=== PATIENT | female | born 1950 | race Caucasian/White ===

== ENCOUNTER → 2018-05-13 11:59 | Outpatient (CLI) | payer MEDICARE, OTHER, SELFPAY ==
--- NOTE | 2018-05-13 | DI.MG.S_ITS ---
BILATERAL DIGITAL SCREENING MAMMOGRAM 3D/2D WITH CAD: 05/13/2018 CLINICAL: Routine screening. Family history of breast cancer. Comparison is made to exams dated: 02/13/2017 mammogram, 01/07/2016 mammogram, 01/07/2016 mammogram, and 12/31/2014 mammogram - [facility]. The tissue of both breasts is extremely dense, which lowers the sensitivity of mammography. Current study was also evaluated with a Computer Aided Detection (CAD) system. No significant masses, calcifications, or other findings are seen in either breast. There has been no significant interval change. IMPRESSION: NEGATIVE There is no mammographic evidence of malignancy. A 1 year screening mammogram is recommended. This exam was interpreted at Station ID: [id number]. NOTE: For mammograms, a report in lay terms will be sent to the patient. Approximately 15% of breast malignancies will not be visualized mammographically. In the management of a palpable breast mass, a negative mammogram must not discourage biopsy of a clinically suspicious lesion. Electronically Signed By: Addis hood/leonides:05/14/2018 16:33:02 letter sent: Normal Exam ACR BI-RADS Category 1: Negative 3341F
== END ==
PROVIDERS: Family Provider Family Medicine; PCP Family Medicine; Visit Provider Family Medicine
DX: Z12.31 Encounter for screening mammogram for malignant neoplasm of breast (principal); Z80.3 Family history of malignant neoplasm of breast
CPT/HCPCS: 77063; 77067

== ENCOUNTER → 2018-05-29 15:00 | Outpatient (CLI) | payer MEDICARE, OTHER, SELFPAY | PROVIDERS: Family Provider Family Medicine; PCP Family Medicine; Visit Provider Family Medicine | DX: M81.0 Age-related osteoporosis without current pathological fracture (principal); Z78.0 Asymptomatic menopausal state | CPT/HCPCS: 77080 ==

== ENCOUNTER → 2019-12-24 10:38 | Outpatient (CLI) | payer MEDICARE, OTHER, SELFPAY ==
--- NOTE | 2019-12-24 | DI.MG.S_ITS ---
BILATERAL DIGITAL SCREENING MAMMOGRAM 3D/2D WITH CAD: 12/24/2019 CLINICAL: Routine screening. Family history of breast cancer. Comparison is made to exams dated: 05/13/2018 mammogram, 02/13/2017 mammogram, and 01/07/2016 mammogram - [facility]. The tissue of both breasts is extremely dense, which lowers the sensitivity of mammography. Current study was also evaluated with a Computer Aided Detection (CAD) system. No significant masses, calcifications, or other findings are seen in either breast. IMPRESSION: NEGATIVE There is no mammographic evidence of malignancy. A 1 year screening mammogram is recommended. This exam was interpreted at Station ID: [id number]. NOTE: For mammograms, a report in lay terms will be sent to the patient. Approximately 15% of breast malignancies will not be visualized mammographically. In the management of a palpable breast mass, a negative mammogram must not discourage biopsy of a clinically suspicious lesion. Electronically Signed By: Addis hood/leonides:12/24/2019 13:50:30 letter sent: Normal Exam ACR BI-RADS Category 1: Negative 3341F
== END ==
PROVIDERS: Family Provider Family Medicine; PCP Student in an Organized Health Care Education/Training Program; Referring Provider Student in an Organized Health Care Education/Training Program; Visit Provider Student in an Organized Health Care Education/Training Program
DX: Z12.31 Encounter for screening mammogram for malignant neoplasm of breast (principal); Z80.3 Family history of malignant neoplasm of breast
CPT/HCPCS: 77063; 77067

== ENCOUNTER → 2020-08-30 14:21 | Outpatient (CLI) | payer MEDICARE, OTHER, SELFPAY ==
--- NOTE | 2020-08-30 | DI.RAD.S_ITS ---
PROCEDURE: XR DEXA AXIAL SKELETON INDICATIONS: age related osteoporosis COMPARISON: [facility], CR, XR DEXA AXIAL SKELETON, 05/29/2018, 15:33. FINDINGS: This blank DEXA report has been sent in error by the PACS system. The correct and complete report will be forthcoming in 1-2 days. Thank you for your patience and understanding. Dictated by: Millie Cuevas MD, PhD on 08/30/2020 at 17:21 Approved by: Millie Cuevas MD, PhD on 08/30/2020 at 17:21
--- NOTE | 2020-08-30 | DI.RAD.S_ITS ---
PROCEDURE: XR CHEST 2V INDICATIONS: unspecified chest pain TECHNIQUE: 2 views of the chest were acquired. COMPARISON: None. FINDINGS: Surgical changes and devices: None. Lungs and pleura: Lungs are clear. No pleural effusions or pneumothorax. Mediastinum: Mediastinal contours are normal. Heart size is normal. Bones and chest wall: No suspicious bony abnormalities. Soft tissues appear unremarkable. IMPRESSION: Normal for age, source of current chest pain symptoms is not seen. Dictated by: French Sepulveda M.D. on 08/30/2020 at 15:26 Approved by: French Sepulveda M.D. on 08/30/2020 at 15:26
== END ==
PROVIDERS: PCP Student in an Organized Health Care Education/Training Program; Referring Provider Student in an Organized Health Care Education/Training Program; Visit Provider Student in an Organized Health Care Education/Training Program
DX: R07.9 Chest pain, unspecified (principal); M81.0 Age-related osteoporosis without current pathological fracture; M85.88 Other specified disorders of bone density and structure, other site
CPT/HCPCS: 71046; 77080

== ENCOUNTER → 2020-09-25 09:34 | Outpatient (CLI) | payer MEDICARE, OTHER, SELFPAY ==
[2020-09-25 11:26] LABS: COVID19 -Nasal RAPID Negative (Negative)
== END ==
PROVIDERS: PCP Student in an Organized Health Care Education/Training Program; Referring Provider Physician Assistant; Visit Provider Physician Assistant
DX: Z01.812 Encounter for preprocedural laboratory examination (principal); Z20.822 Contact with and (suspected) exposure to COVID-19
CPT/HCPCS: 87635; C9803

== ENCOUNTER → 2020-09-27 10:07 | Outpatient (CLI) | payer MEDICARE, OTHER, SELFPAY ==
--- NOTE | 2020-09-27 10:09 | DI.NM.S_ITS ---
PROCEDURE: NM SULEMA PERF SPECT REST & STR Rest and exercise myocardial perfusion SPECT with gated imaging and ejection fraction RADIOPHARMACEUTICAL: 9.8 mCi Tc-99m sestamibi IV at rest and 25.7 mCi Tc-99m sestamibi IV at peak exercise. A one day-protocol was performed. INDICATIONS: Chest pain, unspecified TECHNIQUE: Radiopharmaceutical was injected at peak stress test, and also at rest. SPECT images were obtained. SPECT myocardial perfusion images were displayed in short axis, horizontal long axis, and vertical long axis views. Gated images were reviewed using Showcase software. COMPARISON: None. CARDIAC STRESS: A standard Franc treadmill exercise tolerance test was performed by the patient under the supervision of an attending staff. The patient exercised for 6 minutes and 40 seconds; functional aerobic impairment (GEOVANNI) is -27%. Hemodynamic data: There is normal blood pressure and heart rate response to exercise stress. Patient achieved 97% of maximum predicted heart rate at peak exercise. Symptoms: Patient denied chest pain during exercise. EKG: No diagnostic EKG changes of ischemia; no ectopy. FINDINGS: Raw data: There is good myocardial labeling by radiotracer. No significant motion artifacts. Aziw-zb-qrytk ratio is 0.33 (normal is less than 0.38 for sestamibi tracer, and less than 0.50 for thallium tracer). Left ventricle function: Gated images demonstrate normal left ventricle wall thickening. No segmental wall motion abnormality. No transient ischemic dilation; TID is 0.85 (normal less than 1.3). The left ventricle resting end-diastolic volume is 81 mL. Left ventricle stress ejection fraction is 79%; normal values are above 45%. Myocardial perfusion: There is normal distribution of activity in the left and right ventricular myocardium. No fixed or reversible perfusion defects. IMPRESSION: Low risk, normal treadmill nuclear stress test 1) No perfusion evidence of ischemia or infarction. 2) Normal left ventricular size, wall motion, and systolic function (EF post stress 79%). 3) No ECG evidence of ischemia. 4) No angina during the study. 5) Good exercise tolerance (10.1 METs, GEOVANNI -27%). Target heart rate achieved. Appropriate BP response to exercise. 6) No prior nuclear stress test available for comparison. Dictated by: Priscilla Neville MD on 09/27/2020 at 16:56 Approved by: Priscilla Neville MD on 09/27/2020 at 16:59
--- NOTE | 2020-09-27 15:15 | PM.TREADMILL ---
Cardiac Stress Test Report Referral & Results Date Patient Seen: 09/27/20 Time Patient Seen: 15:15 Requesting provider: Charlotte Escamilla Indication: chest pain Rest ECG: sinus rhythm Procedure Note: Standard Franc protocol, 7:45, 7.7 METS Good exercise capacity, GEOVANNI -27% Normal hemodynamic response to exercise No chest pain or anginal symptoms No significant ST changes with nonspecific ST changes at peak exercise No ectopy Impression: Normal exercise stress test Please note: Actual ECG tracings can be found in the PACS system.
== END ==
PROVIDERS: PCP Student in an Organized Health Care Education/Training Program; Referring Provider Student in an Organized Health Care Education/Training Program; Visit Provider Student in an Organized Health Care Education/Training Program
DX: R07.9 Chest pain, unspecified (principal)
CPT/HCPCS: 78452; 93017; A9502

== ENCOUNTER → 2021-03-11 13:31 | Outpatient (CLI) | payer MEDICARE, OTHER, SELFPAY ==
--- NOTE | 2021-03-11 13:34 | DI.MG.S_ITS ---
BILATERAL DIGITAL SCREENING MAMMOGRAM 3D/2D WITH CAD: 03/11/2021 CLINICAL: Routine screening. Family history of breast cancer. Comparison is made to exams dated: 12/24/2019 mammogram, 05/13/2018 mammogram, and 02/13/2017 mammogram - [facility]. The tissue of both breasts is extremely dense, which lowers the sensitivity of mammography. Current study was also evaluated with a Computer Aided Detection (CAD) system. No significant masses, calcifications, or other findings are seen in either breast. There has been no significant interval change. IMPRESSION: NEGATIVE There is no mammographic evidence of malignancy. A 1 year screening mammogram is recommended. This exam was interpreted at Station ID: [id number]. NOTE: For mammograms, a report in lay terms will be sent to the patient. Approximately 15% of breast malignancies will not be visualized mammographically. In the management of a palpable breast mass, a negative mammogram must not discourage biopsy of a clinically suspicious lesion. Electronically Signed By: Shashank Alfonso M.D., jr/lenoides:03/11/2021 14:05:20 letter sent: Normal Exam ACR BI-RADS Category 1: Negative 3341F
== END ==
PROVIDERS: PCP Student in an Organized Health Care Education/Training Program; Referring Provider Student in an Organized Health Care Education/Training Program; Visit Provider Student in an Organized Health Care Education/Training Program
DX: Z12.31 Encounter for screening mammogram for malignant neoplasm of breast (principal); Z80.3 Family history of malignant neoplasm of breast
CPT/HCPCS: 77063; 77067

== ENCOUNTER → 2022-04-25 08:06 | Outpatient (CLI) | payer MEDICARE, OTHER, SELFPAY ==
--- NOTE | 2022-04-25 08:07 | DI.MG.S_ITS ---
BILATERAL DIGITAL SCREENING MAMMOGRAM 3D/2D WITH CAD: 04/25/2022 CLINICAL: Routine screening. Family history of breast cancer. Comparison is made to exams dated: 03/11/2021 mammogram, 12/24/2019 mammogram, and 05/13/2018 mammogram - [facility]. Both breasts are heterogeneously dense, which may obscure small masses (category c / 51-75% glandular tissue). Current study was also evaluated with a Computer Aided Detection (CAD) system. No significant masses, calcifications, or other findings are seen in either breast. There has been no significant interval change. IMPRESSION: NEGATIVE There is no mammographic evidence of malignancy. A 1 year screening mammogram is recommended. Based on the Tyrer Cuzick model (a risk assessment model) the patient's lifetime risk is 10.1% and her 10 year risk is 6.0%. According to the ACR, ACS, and NCCN guidelines, an annual breast MRI exam along with mammogram is recommended if the patient's lifetime risk is 20% or greater. This exam was interpreted at Station ID: [id number]. NOTE: For mammograms, a report in lay terms will be sent to the patient. Approximately 15% of breast malignancies will not be visualized mammographically. In the management of a palpable breast mass, a negative mammogram must not discourage biopsy of a clinically suspicious lesion. Electronically Signed By: Jonny oscar/leonides:04/25/2022 08:40:49 letter sent: Normal Exam ACR BI-RADS Category 1: Negative 3341F
== END ==
PROVIDERS: PCP Registered Nurse; Referring Provider Registered Nurse; Visit Provider Registered Nurse
DX: Z12.31 Encounter for screening mammogram for malignant neoplasm of breast (principal); Z80.3 Family history of malignant neoplasm of breast
CPT/HCPCS: 77063; 77067

== ENCOUNTER → 2022-06-23 11:26 | Outpatient (CLI) | payer MEDICARE, OTHER, SELFPAY | PROVIDERS: PCP Registered Nurse; Referring Provider Orthopaedic Surgery; Visit Provider Orthopaedic Surgery | DX: Z01.818 Encounter for other preprocedural examination (principal); Z01.812 Encounter for preprocedural laboratory examination; R73.9 Hyperglycemia, unspecified; N39.0 Urinary tract infection, site not specified | CPT/HCPCS: 93005 ==

== ENCOUNTER → 2022-09-05 | Outpatient (CLI) | payer MEDICARE, OTHER, SELFPAY ==
--- NOTE | 2022-09-05 | DI.RAD.S_ITS ---
Bone Density Report Name: JERSON GRAMAJO Age: 71 Sex: Female Ethnicity: White Date of : 1950 Indication: postmenopausal osteoporosis; Referring Provider: DIONISIO REINOSO Study: Bone densitometry was performed. Exam Date: September 05, 2022 Accession number: [id number] Bone Density: Region BMD T-score Z-score Classification AP Spine(L1-L4) 0.844 -1.8 0.2 Osteopenia Femoral Neck (Left) 0.590 -2.3 -0.5 Osteopenia Total Hip (Left) 0.611 -2.7 -1.2 Osteoporosis Femoral Neck (Right) 0.549 -2.7 -0.9 Osteoporosis Total Hip (Right) 0.640 -2.5 -1.0 Osteoporosis Total Hip Mean 0.625 -2.6 -1.1 Osteoporosis World Health Organization criteria for BMD impression classify patients as: Normal (T-score at or above -1.0), Osteopenia (T-score between -1.0 and -2.5), or Osteoporosis (T-score at or below -2.5). 10-year Fracture Risk: FRAX not reported because: Some T-score for Spine Total or Hip Total or Femoral Neck at or below -2.5 Previous Exams: -- Region Exam Age BMD T-score BMD Change BMD Change Date g/cm2 vs Baseline vs Previous -- AP Spine (L1-L4) 09/05/2022 71 0.844 -1.8 -0.013 (-1.5%)# -0.013 (-1.5%)# 08/30/2020 69 0.857 -1.7 Total Hip(Left) 09/05/2022 71 0.611 -2.7 0.002 (0.3%)# 0.002 (0.3%)# 08/30/2020 69 0.609 -2.7 Total Hip(Right) 09/05/2022 71 0.640 -2.5 0.024 (3.8%)# 0.024 (3.8%)# 08/30/2020 69 0.616 -2.7 -- *Denotes significance at 95% confidence level, LSC for AP Spine = 0.022 g/cm2, LSC for Total Hip = 0.027 g/cm2 # Denotes dissimilar scan types or analysis methods Impression: The patient has osteoporosis, based on the Left Total Hip T-score. No significant bone loss was observed. Discussion: INCREASED RISK OF FRACTURE. BONE DENSITY IS UNDESIRABLY LOW AT ONE OR MORE SKELETAL SITES, CONSISTENT WITH POSTMENOPAUSAL OSTEOPOROSIS. This patient's lowest T-score meets the World Health Organization's (WHO) criteria for osteoporosis at one or more sites (T-score -2.5 or below). In untreated patients, the risk of osteoporotic fracture increases approximately two-fold for each 1.0 SD decrease in T-score. Low bone density is not the only risk factor for fracture; also consider factors such as patient's age, frailty or poor health, risk of falling, risk of injury, previous osteoporotic fracture, family history of osteoporosis, cigarette smoking, low body weight, etc. Not everyone with low bone mineral density has osteoporosis; osteomalacia and other metabolic bone disorders should also be considered. Patients who have osteoporosis should be evaluated for specific diseases and conditions (secondary causes) that may cause or contribute to bone loss. The [place] [employer] Endocrinologists (AACE) and National Osteoporosis Foundation (NOF) recommend pharmacologic intervention for all postmenopausal women whose T-score is in this range. The patient should follow a healthful lifestyle (good nutrition with adequate calcium and vitamin D, and appropriate weight-bearing exercise). Follow-Up: Consider a repeat BMD and Vertebral Fracture Assessment (VFA) exam in 2 years or sooner if medically necessary, to reassess this patient's status. Reported by: SILVER ESPINOSA M.D. on 09/05/2022 10:17:00 AM.
== END ==
LOC: RAD 09:41
PROVIDERS: PCP Registered Nurse; Referring Provider Registered Nurse; Visit Provider Registered Nurse
DX: M81.0 Age-related osteoporosis without current pathological fracture (principal); Z78.0 Asymptomatic menopausal state
CPT/HCPCS: 77080

== ENCOUNTER 2022-09-21 09:03 | Day surgery (SDC) | payer MEDICARE, OTHER, SELFPAY ==
[2022-09-15 10:51] VITALS: BMI 23.6
[2022-09-21] VITALS (9 sets, daily range): BP systolic 80–126; BP diastolic 51–70; PULSE 61–100; RESP 12–18; TEMP 35.6–36.8; O2SAT 90–96; BMI 22.2
--- NOTE | 2022-09-21 06:00 | DI.RAD.S_ITS ---
PROCEDURE: XR HIP W PEL IF DONE LT 2V INDICATIONS: DEBBY TECHNIQUE: 4 intraoperative views of the hip were acquired. COMPARISON: [facility] [place], CR, XR PELVIS WITH LATERAL HIP LEFT, 04/28/2022, 9:05. FINDINGS: Intraoperative views demonstrate placement of left hip arthroplasty. IMPRESSION: Intraoperative imaging obtained during left hip arthroplasty. Dictated by: Pinky Bo M.D. on 09/21/2022 at 14:24 Transcribed by: MICHAEL on 09/21/2022 at 14:24 Approved by: Pinky Bo M.D. on 09/21/2022 at 16:39
[2022-09-21] MEDS: LACTATED RINGERS 1,000 ML 42 ML IV ×2 (09:39→13:05)
[2022-09-21] MEDS: ACETAMINOPHEN 325 MG TABLET 975 MG PO (09:40)
[2022-09-21] MEDS: PREGABALIN 75 MG CAPSULE PO (09:40)
[2022-09-21] MEDS: CELECOXIB 200 MG CAPSULE PO (09:40)
[2022-09-21] MEDS: VANCOMYCIN 1,000 MG/200 ML PIGGYBACK 200 MG IV (09:56)
[2022-09-21 10:15] LABS: COVID19 -Nasal RAPID Negative (Negative)
--- NOTE | 2022-09-21 10:39 | PM.PREOP ---
Pre-operative Note Interval Note History & Physical reviewed/Exam performed by Physician: Yes Changes to H&P: No
--- NOTE | 2022-09-21 10:39 | PM.OP.1 ---
Operative Date/Time/Diagnoses Date of procedure: 09/21/22 Time of procedure: 11:30 Pre-op diagnosis: left hip OA Post-op diagnosis: same Procedure & Clinicians Procedure: Left total hip arthroplasty anterior approach Same procedure as scheduled: Yes Indications: The patient has had progressively worsening left hip pain with radiographic changes consistent with arthritis. Non-operative management has failed and the patient has requested total hip replacement. The risks, benefits and alternatives to surgery were discussed with the patient prior to proceeding. Risks discussed included, but were not limited to, failure to relieve pain, leg length discrepancy, dislocation, stiffness, infection, nerve damage, deep venous thrombosis, pulmonary embolism, stroke, coma, heart attack, permanent paralysis and , as well as the potential need for eventual revision of the prosthetic. Surgeon: Mireya Bower Human Resources Operations Coordinator: Iliana Shepherd Anesthesia Type: General and Spinal Operative Notes Findings: Severe left hip osteoarthritis, soft bone adequate stability Closure Type: primary Specimen(s): none sent Prosthetic devices, grafts, tissues, transplants, or devices: Bower and nephew anthology standard offset size 9, size 50 R3 cup, neutral poly liner, 32 x +0 Oxinium head, one 6.5mm screw Estimated Blood Loss (mL): 250 Blood products transfused: none Procedure in detail: The patient was brought to the operating room. Patient was carefully positioned in the supine position. Time-out was performed and antibiotics were given. Anesthesia was induced. She was positioned in the on the table in order to allow hyperextension of the hip. The left lower extremity was prepped and draped in a standard sterile fashion. An anterior left hip incision was made 1 fingerbreadth lateral to the anterior superior iliac spine and extended distally towards the greater trochanter. Dissection was carried out through skin and subcutaneous tissues. Superficial hemostasis was achieved. The fascia over the tensor fascia luci was defined and incised with a knife. Two Allis clamps were used to grasp the fascia. Tensor fascia luci was retracted laterally. A gelpi retractor was placed. Dissection was carried out down along the neck. The circumflex vessels were carefully identified and cauterized with the Aqua Mantis. A PA was used during the procedure and was essential for retraction adequate positioning of the femur in order to avoid major intraoperative complication and to allow adequate visualization for hemostasis. There was good visualization of the femoral neck. A Cobra was placed superior to the neck and the gluteus fibers were carefully stripped from that superior aspect of the capsule. A 2nd retractor was placed along the inferior aspect of the neck. The rectus insertion along the capsule was partially released. A 3rd retractor that was then gently placed over the rim of the acetabulum under the rectus. Capsule was carefully incised and released from the intertrochanteric line circumferentially superior to the mid sagittal line and inferiorly to the mid sagittal line until the lesser trochanter was palpable. A tag stitch was placed both in the superior and inferior limb of the capsular insertion. Along the acetabulum capsule was also released up to the mid sagittal 12:00 position. A portion of the labrum was resected. A saw was used to perform an osteotomy at the level of the intertrochanteric line and the junction of the superior femoral neck leaving approximately 1 finger breath of residual inferior neck above the lesser trochanter. A 2nd cut was made along the femoral neck at the base of the head and a napkin ring of neck was removed. Corkscrew was placed in the femoral head and the head was removed without difficulty. Retractors were then repositioned around the acetabulum. Residual labrum was resected and additional osteophytes were removed. A reamer that was 4 mm below the templated size was placed by hand in the acetabulum and it was reamed to centralize the acetabulum. It was then reamed up to 2 under the templated size and fluoroscopy was brought in to confirm the position of the reaming and depth of reaming. I reamed 1 under the anticipated size. A trial cup was placed and noted that it was appropriately sized and fluoroscopy confirmed position and depth. The component was open and inserted without difficulty fluoroscopic imaging was used to confirm that the cup had been adequately seated and was well positioned. It was further stabilized with a single screw. Neutral poly liner was placed. The cup was tested and noted to be stable. Attention was then directed to the femur. The femur was gently hyperextended additional capsular release was performed as needed in order to allow adequate visualization of the proximal femur with elevation of the femur. Patient was placed in a hyperextended slightly adducted position with maximum external rotation. Box osteotome was used to check for any residual neck as well as sclerotic bone along the trochanter. Taylor pepper was placed in the femur. Additional broaching was performed. Canal finder was used to determine the alignment of the canal and position. Size 1 broach was placed. The canal was then appropriately broached up to the templated size as long as there was adequate stability of the broach and serial advancement of the broach without excessive impingement. Specific attention was directed at avoiding varus attempting to direct the distal aspect of the broach more anteriorly and avoiding excessive anteversion. Trial reduction showed acceptable range of motion, good stability, no posterior impingement, church of leg length and appropriate lateral shuck. I also hyperflexed the hip and checked that there was no impingement anteriorly and there was good stability with flexion, adduction and internal rotation. Marcaine and Exparel were injected. The stem was placed without difficulty. Repeat trial reduction and x-ray showed acceptable overall position, length, and no evidence of the femoral fracture. Final head was placed. Wound was meticulously irrigated with normal saline. The hip was reduced and additional Exparel and Marcaine were injected. The capsule was closed with interrupted nonabsorbable sutures. The fascia of the tensor was closed with interrupted and running Vicryl. No drain was placed. Any tensor fascia luci muscle that appeared to be contused or injured which was a minimal amount was carefully resected. Capsule around the tensor was injected with Exparel and Marcaine. The skin was closed with barbed stitches for the subcutaneous tissue and skin. We also used surgical glue. The wound was dressed sterilely. Brief Betadine soak was also used and was meticulously irrigated with normal saline. Patient was transferred to recovery room in satisfactory condition. Complications: none Post-operative Condition: stable Disposition: Acute Care Plan for aftercare: The patient will be maintained on a standard total hip replacement protocol with weight bearing as tolerated and anterior hip precautions. The patient will receive Aspirin and sequential compression devices for DVT prophylaxis. The patient will be discharged home when safe for the home environment.
[2022-09-21] MEDS: CLINDAMYCIN 900 MG/50 ML PIGGYBACK 50 MG IV ×2 (11:40→20:12)
[2022-09-21] MEDS: TRANEXAMIC ACID 1,000 MG VIAL 2000 MG INJ (12:00)
--- NOTE | 2022-09-21 12:17 | SUR.OPER ---
Supine on padded [place] table with bilateral legs secured in padded positioning boots and suspended in positioning spars, operative leg in traction per surgeon. Head on one pillow. Arm on non-operative side secured on padded armboard <90 degrees abduction. Arm on operative side padded and resting across chest then secured with tape over sheet. Padded perineal post in place per surgeon.
[2022-09-21] MEDS: BUPIVACAINE 0.25% (PF) 60 ML, EPINEPHrine 0.3 MG INJ (12:28)
[2022-09-21] MEDS: BUPIVACAINE LIPOSOME 266 MG/20 ML VIAL INJ (13:58)
--- NOTE | 2022-09-21 14:30 | DI.RAD.S_ITS ---
PROCEDURE: XR HIP W PEL IF DONE LT 2V INDICATIONS: POST OP ANTERIOR TOTAL HIP TECHNIQUE: AP pelvis and lateral view of the left hip acquired. COMPARISON: [facility], [place], XR HIP W PEL IF DONE LT 2V, 09/21/2022, 12:56. FINDINGS: Bones: Patient is status post left hip arthroplasty, with hardware components in expected positions. The hip joint appears congruent. The visualized bony structures appear intact. Soft tissues: Overlying postoperative changes are noted. No suspicious soft tissue densities. IMPRESSION: Postop changes from left total hip arthroplasty with anatomic left hip alignment. Dictated by: Smith Denton M.D. on 09/21/2022 at 14:48 Approved by: Smith Denton M.D. on 09/21/2022 at 14:48
[2022-09-21] MEDS: OXYCODONE/ACETAMINOPHEN 5/325 TABLET 1 TAB PO (14:44)
[2022-09-21] MEDS: IBUPROFEN 400 MG TABLET PO ×3 (15:43→23:47)
[2022-09-21] MEDS: LACTATED RINGERS 1,000 ML 100 ML IV (15:44)
[2022-09-21] MEDS: ACETAMINOPHEN 325 MG TABLET 650 MG PO ×2 (15:44→21:51)
--- NOTE | 2022-09-21 16:10 | PT.IIE ---
Addendum entered and electronically signed by Bambi Avila PT 09/21/22 16:47: Gait goal should include 2WW as LRAD for 100' gait Original Note: Current Diagnoses Unilateral primary osteoarthritis, left hip (09/21/22) Surgery Performed Operation Date: 09/21/22 10:45 Actual Procedures p Total Hip Arthroplasty/Anterior Approach(Left) - Mireya Bower MD Surgical History (Last Updated 09/15/22 @ 11:14 by Lucita Pierre RN) Hx of abdominoplasty Hx of arthroscopy of right knee Hx of thumb surgery Hx of unilateral salpingectomy Status post appendectomy Medical History (Last Updated 09/15/22 @ 11:19 by Lucita Pierre RN) Asthma Depression (2017) Easy bruisability Eczema Elevated cholesterol History of COVID-19 (11/2021) Hx of heartburn Osteoarthritis Osteoporosis Physical Therapy Inpatient Evaluation/Re-Eval M1 PT/OT-IP Prior Functional Status Start: 09/21/22 15:58 Freq: NEEDED Status: Active Protocol: Document 09/21/22 15:59 MB (Rec: 09/21/22 16:10 MB [id number]) Medical Review Prior Functional Status Medical History Reviewed Yes Communication WNLs Mobility and Gait I Activities of Daily Living and IADL's I Social History Household Members spouse Living Arrangements House Number of Floors (Floors) One Floor Number of Stairs To Enter/Railing? 2, no railing Home Environment High Toilet Home Equipment Front Wheel Walker,Tub Transfer Bench Employment Status Retired M2 PT-IP Current Condition Start: 09/21/22 15:58 Freq: NEEDED Status: Active Protocol: Document 09/21/22 15:59 MB (Rec: 09/21/22 16:10 MB [id number]) Physical Therapy Current Condition Current Condition Evaluation Date 09/21/22 Treatment Diagnosis L hip OA s/p DEBBY Onset Date Adm today M3 PT-IP Subjective Start: 09/21/22 15:58 Freq: NEEDED Status: Active Protocol: Document 09/21/22 15:59 MB (Rec: 09/21/22 16:10 MB [id number]) Subjective Physical Therapy Visit Type Type Initial Evaluation Visit Start Time 15:30 Visit Stop Time 15:55 Total Visit Minutes 25 Number of FEEDER ASSOCIATE Visits 0 Physical Therapy Visit Comments Patient Comments Pt's goal is to go home with . Patient Goals See above Therapy Pain Assessment Pain When Pain Assessed At Rest Pain Present Pain Present Pain Reported Location L hip Intensity 6 Scale Used Numeric (0 - 10) Description Acute Pain Management Techniques Apply Cold,Timing of Activity with Medications M4 PT-IP Mobility and Gait Start: 09/21/22 15:58 Freq: NEEDED Status: Active Protocol: Document 09/21/22 15:59 MB (Rec: 09/21/22 16:10 MB [id number]) PT-Bed Mobility Assessment Rolling Type of Rolling Roll to Left Level of Assist Minimal Assistance,1 Person Assistance Supine to Sit Supine to Sit Minimal Assistance,1 Person Assistance,Head of Bed Elevated,Bedrails Scooting Scooting to Edge of Bed Minimal Assistance PT-Transfer Assessment Sit to and From Stand Sit to and from Stand Minimal Assistance,1 Person Assistance,Use of Upper Extremities Equipment Transfer Assistive Device Front Wheeled Walker Orthotic/Prosthetic Devices or Brace: No Transfers Transfer Destination Chair Transfer Technique Stepping to chair with RW Transfer Ability Level of Assist Minimal Assistance,1 Person Assistance Comments Mobility Comments Step-to herman initially to get started, walker and then LLE followed by right LE for forward and reverse for retropulsion Gait Assessment Gait Gait Assistance Required: Minimum Assistance,1 Person Assist Distance (Feet) 5 Able to Maintain Weight Bearing Status Yes During Gait Assistive Devices Assistive Device Front Wheeled Walker Orthotic/Prosthetic Devices or Brace: No Gait Deviations General Gait Pattern Antalgic,Decreased Stride Length,Decreased Feet Clearance,Wide Based Gait Factors Limiting Gait Function Factors Limiting Gait Function Pain,Poor Balance Comments Gait Comments See above for gait comments PT-Balance Assessment Sitting Balance and Reactions Static Sitting Balance Ability Fair Dynamic Sitting Balance Ability Fair Standing Balance and Reactions Static Standing Balance Ability Fair Dynamic Standing Balance Ability Fair Comments Other Balance Tests/Deviations/Treatment UE support for static and : dynamic sitting and scooting and RW support for static and dynamic standing with PT Min A M5 PT-IP Objective Assessments Start: 09/21/22 15:58 Freq: NEEDED Status: Active Protocol: Document 09/21/22 15:59 MB (Rec: 09/21/22 16:10 MB [id number]) Orientation Orientation/Cognition Level of Alertness Alert Orientation Name,Age,Birthday,Month,Date, Year,Day of Week,Place, Situation Language Function Ability No Deficits Noted Safety Awareness Understands Safety Issues Memory Description No Deficits Noted Gross Range of Motion Upper Extremity ROM Assessment Within Functional Limits Lower Extremity ROM Assessment Left Impaired Impairments L hip Strength Upper Extremity Strength Assessment Within Functional Limits Lower Extremity Strength Assessment Left Impaired Hip Does not tolerate Knee As above Ankle As above Sensation Assessment Sensation Gross Sensation WNL M6 PT-IP Treatment Start: 09/21/22 15:58 Freq: NEEDED Status: Active Protocol: Document 09/21/22 15:59 MB (Rec: 09/21/22 16:10 MB [id number]) Physical Therapy Treatment Exercises Exercises Ankle Pumps,Gluteal Sets,Quad Sets,Heel Slides Education Education Provided Precautions,Weight Bearing Status,Post-Op Packet,Safety M7 PT-IP Assessment and Plan Start: 09/21/22 15:58 Freq: NEEDED Status: Active Protocol: Document 09/21/22 15:59 MB (Rec: 09/21/22 16:10 MB [id number]) PT Summary Assessment and Plan Potential Rehabilitation Potential Excellent Status of Condition at Evaluation Stable Summary Impairments Pain,Strength,Balance Progress Towards Goals Progressing Toward Goals Assessment Summary Pt is a pleasant 71 y/o female presenting alert s/p left DEBBY only a few hours earlier and she is moving legs in the bed. She c/o 6/10 pain and does tolerate bed mobility, transfer, short stepping and up to chair with RW. Pt requires min A and ed for mobility today, starting with step-to gait to get started post-op. Provided post -op packet and instructed pt in anterior hip precautions and exercises. Goals Bed Mobility Goal Independent Transfer Goal Independent Gait Goal Independent Gait Distance 100 Other Goals Ascend and descend 2 steps without rail with LRAD and min A. Days to Meet Goals 2 Frequency of Treatment Frequency Of Treatment Twice a Day Treatment Plan Physical Therapy Treatment Plan Bed Mobility Training,Transfer Training,Gait Training, Therapeutic Exercise,Balance Retraining,Post Op Education, Hot or Cold Pack Precautions Anterior Hip Precautions No Hip Extension,No Hip External Rotation Weight Bearing Status Weight Bearing Status Weight Bear as Tolerated Recommendations To Nursing Amount of Assist Needed 1 Person Assist Discharge Recommendations PT Discharge Recommendations Home with Assistance Transportation Needs at Discharge Private Vehicle
[2022-09-21] MEDS: OXYCODONE IR 5 MG TABLET PO (16:29)
--- NOTE | 2022-09-21 16:49 | PC.NURSE ---
Pt arrived to room 207 at 1500, VSS, afebrile. SBP soft, but improved to 100/50, on RA 95% 02 sats, afebrile. She denies any dizziness, n/v, or numbness/tingling to BLE's. Aquacel to L hip c/d/i. PT at bedside this afternoon, sitting patient up and ambulating to chair. She tolerates this well. PRN oxycodone 5mg given for 6/10 pain after PT. Pt tolerated well and reports pain well controlled. at bedside supportive. IVF LR running at 100 ml/hr. Educated on IS, and reaching 1999. Continuous monitoring.
[2022-09-21] MEDS: ASPIRIN EC 81 MG TABLET PO (20:12)
[2022-09-21] MEDS: DOCUSATE 100 MG CAPSULE PO (20:12)
[2022-09-22 00:25] VITALS: BP 117/64; PULSE 64; RESP 14; TEMP 36.5; O2SAT 98
[2022-09-22] MEDS: OXYCODONE IR 5 MG TABLET PO ×2 (01:43→06:41)
[2022-09-22] MEDS: ACETAMINOPHEN 325 MG TABLET 650 MG PO ×2 (03:19→09:12)
[2022-09-22] MEDS: IBUPROFEN 400 MG TABLET PO ×2 (03:19→06:41)
[2022-09-22] MEDS: CLINDAMYCIN 900 MG/50 ML PIGGYBACK 50 MG IV (03:22)
[2022-09-22 04:25] VITALS: BP 138/57; PULSE 78; RESP 16; TEMP 36.6; O2SAT 93
[2022-09-22] MEDS: SODIUM CHLORIDE 0.9% FLUSH 10 ML IV (04:42)
[2022-09-22 06:09] LABS: Hematocrit 29.1 % (36-46); Hemoglobin 10.1 g/dL (12.0-16.0)
--- NOTE | 2022-09-22 07:40 | PM.DS.1 ---
History of Present Illness History of Present Illness Date Patient Seen: 09/22/22 Time Patient Seen: 07:40 Chief complaint: OPB Narrative: Patient is complaining of mild left hip pain. She is working with physical therapy. She is been using some Nicorette minutes while in the hospital. Overall she is feeling well and would like to be discharged home today. Denies any numbness or tingling. Discharge Providers Provider Discharge Date: 09/22/22 Primary care physician: JHONY Vazquez Consults: 09/15/22 13:05 Consult to Anesthesiology Routine Comment: Consulting Provider: Anesthesiologist Reason for consultation: PAC courtesy re: Abnormal pre-op EKG 09/21/22 06:00 Consult to Anesthesiology Routine Comment: Consulting Provider: Anesthesiologist Reason for consultation: Regional block for post operative pain control 09/21/22 15:11 Consult to Discharge Planning Routine Comment: Consult to Physical Therapy Evaluate & Treat Comment: Physician Instructions: post op DEBBY protocol Discharge provider: Yue Cervantes PA-C Summary Hospital Course Discharge Diagnosis: Left hip osteoarthritis Hospital Course: Operative Date/Time/Diagnoses Date of procedure: 09/21/22 Time of procedure: 11:30 Procedure & Clinicians Procedure: Left total hip arthroplasty anterior approach Same procedure as scheduled: Yes Indications: The patient has had progressively worsening left hip pain with radiographic changes consistent with arthritis. Non-operative management has failed and the patient has requested total hip replacement. The risks, benefits and alternatives to surgery were discussed with the patient prior to proceeding. Risks discussed included, but were not limited to, failure to relieve pain, leg length discrepancy, dislocation, stiffness, infection, nerve damage, deep venous thrombosis, pulmonary embolism, stroke, coma, heart attack, permanent paralysis and , as well as the potential need for eventual revision of the prosthetic. Surgeon: Mireya Bower Recruitment Specialist: Iliana Shepherd Anesthesia Type: General and Spinal Operative Notes Findings: Severe left hip osteoarthritis, soft bone adequate stability Closure Type: primary Specimen(s): none sent Prosthetic devices, grafts, tissues, transplants, or devices: Bower and nephew anthology standard offset size 9, size 50 R3 cup, neutral poly liner, 32 x +0 Oxinium head, one 6.5mm screw Estimated Blood Loss (mL): 250 Blood products transfused: none Exam Vital Signs (past 8 hours): - 09/22/22 00:25 09/22/22 04:25 Temperature 97.7 F 97.8 F Pulse Rate 64 78 Respiratory Rate 14 16 Blood Pressure 117/64 138/57 L Pulse Oximetry 98 93 Oxygen Delivery Method Nasal Cannula Oxygen Flow Rate 0 Objective Labs 09/22/22 05:44 Labs: Laboratory Results - last 24 hr 09/21/22 09/22/22 09:24 05:44 Hgb 10.1 L Hct 29.1 L SARS-CoV-2 (PCR) Negative PFSH Medical History Asthma Depression (2018) Easy bruisability Eczema Elevated cholesterol History of COVID-19 (11/2021) Hx of heartburn Osteoarthritis Osteoporosis Surgical History Hx of abdominoplasty Hx of arthroscopy of right knee Hx of thumb surgery Hx of unilateral salpingectomy Status post appendectomy Family History Father Diverticulitis Prostate cancer High cholesterol Mother Mental health problem Grandmother Diverticulitis Social History household members: spouse Smoking Status: Former smoker alcohol intake: current Discharge Assessment & Plan Assessment and Plan Assessment: -stable status post left total hip arthroplasty, anterior approach Plan of Treatment: -mobilize with PT. Weightbearing as tolerated with front wheel walker or cane. Maintain anterior hip precautions x6 weeks -continue multimodal pain management -Aspirin 81 mg twice daily x6 weeks for DVT prophylaxis -continue with OTC nicotine gum/mints for nicotine dependence -DC home once cleared by PT Discharge Plan Discharge Plan Patient Disposition: Home Discharge orders & Medications Discharge Orders: Discharge (Order); Ordered 09/22/22 Ordered By: Yue Cervantes Prescriptions: New oxycodone 5 mg Tablet 5 mg PO Q3H PRN (Reason: Pain, Moderate (4-6)) Qty: 42 0RF acetaminophen 500 mg capsule 500 mg PO Q4-6H MDD Max 3000 mg per day PRN (Reason: fever or pain) Qty: 90 0RF ibuprofen 400 mg Tablet 400 mg PO Q4H MDD Max 2400 mg per day PRN (Reason: Pain/inflammation) Qty: 90 0RF aspirin 81 mg Tablet,Delayed Release (Dr/Ec) 81 mg PO BID 42 Days Qty: 84 0RF docusate sodium 100 mg Capsule 100 mg PO BID PRN (Reason: constipation) Qty: 20 0RF Continued fluoxetine 40 mg Capsule 40 mg PO QAM acyclovir 400 mg Tablet 400 mg PO DAILY minoxidil 2.5 mg Tablet 1.25 mg PO DAILY Discontinued acetaminophen 500 mg Tablet 500 mg PO BID PRN (Reason: Pain) ibuprofen 200 mg Tablet 400 mg PO DAILY PRN (Reason: Pain) naproxen sodium [Aleve] 220 mg Capsule 220 mg PO DAILY PRN (Reason: Pain) Follow up/Referrals: Ana Harrell ARNP [Primary Care Provider] - Mireya Bower MD [Physician] - As previously scheduled (10-14 days for postoperative visit and x-rays) Diet/Activity/Treatments Diet: Diet as Tolerated Other treatments: Medications: -Aspirin 81mg twice daily x6 weeks to prevent blood clots. -OTC Tylenol 500 mg 1 tablet every 4 hours as needed for pain/fever. Max 6 tablets per day. -Ibuprofen 400 mg 1 tablet every 4 hours as needed for pain/inflammation. Max 2,400 mg per day. -Oxycodone 5 mg take 1-2 tablets every 4 hours as needed for moderate-severe pain (narcotic pain medication). -As needed medications: -Ducolax and /or MiraLax as needed for constipation from narcotic pain medications. -Pepcid AC as needed for stomach upset (usually from aspirin or ibuprofen). Dressing/Wound care: -Keep Aquacell dressing in place until postoperative follow-up office visit. -Okay to shower. Keep wound out of direct water stream. No soaking or submerging until all the scabs fall off (approximately 6 weeks). -No lotions, ointments, or scar creams directly to the incision until the wound is healed (4-6 weeks), -Please call the office if dressing becomes wet, soiled, or saturated. Activities: -Maintain anterior hip precautions x6 weeks. -Walk frequently: approximately 5-10 minutes every hour. -Weight-bearing as tolerated. Use front wheeled walker, and progress to cane when safe. -Continue with home exercises as directed by your physical therapist. -Elevate ?toes above the nose if you have significant swelling in your lower leg. (A wedge pillow is easiest.) -Ice your incision as needed for pain/inflammation/swelling. Protect your skin with a folded pillowcase. Follow-up: -Follow-up with your surgeon or PA in the office in 10-14 days after surgery. -Follow-up with your surgeon 6 weeks postoperatively. Call the office if you have chest pain, shortness of breath, significant swelling that will not resolve with elevating, fever over 101?, significantly worsening pain, or are concerned you might need to go to the Emergency Room. [facility]: [phone] Skin/Wound/Dressing Care Report to your healthcare provider any signs of infection, such as:: chills, fever, night sweats, unusual drainage and unusual redness Visit Report/Discharge Packet Instructions: DI for Hip Replacement Stand Alone Forms: Patient Portal/API, Surgery Discharge Discharge Data Primary Care Provider: Ana Harrell Attending Provider: Mireya Bower
--- NOTE | 2022-09-22 08:35 | PT.IPTN ---
Current Diagnoses Unilateral primary osteoarthritis, left hip (09/21/22) Surgery Performed Operation Date: 09/21/22 10:45 Actual Procedures p Total Hip Arthroplasty/Anterior Approach(Left) - Mireya Bower MD Physical Therapy Treatment Note M2 PT-IP Current Condition Start: 09/21/22 15:58 Freq: NEEDED Status: Active Protocol: Document 09/21/22 15:59 MB (Rec: 09/21/22 16:10 MB [id number]) Physical Therapy Current Condition Current Condition Evaluation Date 09/21/22 Treatment Diagnosis L hip OA s/p DEBBY Onset Date Adm today M3 PT-IP Subjective Start: 09/21/22 15:58 Freq: NEEDED Status: Active Protocol: Document 09/22/22 08:59 TS (Rec: 09/22/22 09:13 TS [id number]) Subjective Physical Therapy Visit Type Type Treatment Note Visit Start Time 08:35 Visit Stop Time 08:54 Total Visit Minutes 19 Number of AIRPLANE FIRST OFFICER Visits 1 Physical Therapy Visit Comments Patient Comments Pt reports having increased pain with movement, reports pain is 2/10, ready to d/c home with . Therapy Pain Assessment Pain When Pain Assessed During Mobility Pain Present Pain Present Pain Reported Location L hip Intensity 2 Scale Used Numeric (0 - 10) Description Acute Pain Behaviors Wincing Pain Management Techniques Apply Cold,Timing of Activity with Medications M4 PT-IP Mobility and Gait Start: 09/21/22 15:58 Freq: NEEDED Status: Active Protocol: Document 09/22/22 08:59 TS (Rec: 09/22/22 09:13 TS [id number]) PT-Bed Mobility Assessment Supine to Sit Supine to Sit Standby Assistance,Head of Bed Elevated Sit to Supine Sit to Supine Standby Assistance,Head of Bed Elevated Scooting Scooting to Edge of Bed Standby Assistance PT-Transfer Assessment Sit to and From Stand Sit to and from Stand Standby Assistance,Use of Upper Extremities Equipment Transfer Assistive Device Front Wheeled Walker Orthotic/Prosthetic Devices or Brace: No Comments Mobility Comments Pt found resting in bed, agreeable to PT session. Supine to sit SBA with HOB elevated with BUE suppport. Sit to stand x1 SBA with BUE support on FWW, demonstrates good balance and posture in FWW. Pt ambulated to toilet ~8 ' SBA with step to gait. Pt performed sit to stand x1 from toilet no AD SBA. Ambulated in hallway ~ 250' with step to gait, cues for no external rotation during turns. She performed stairs x3 SBA with BUE handrail assist, provided cues for step sequencing. Pt was left back in bed with spouse in room, call light nearby, nursing notified. Gait Assessment Gait Gait Assistance Required: Standby Assistance Distance (Feet) 250 Able to Maintain Weight Bearing Status Yes During Gait Assistive Devices Assistive Device Front Wheeled Walker Orthotic/Prosthetic Devices or Brace: No Gait Deviations General Gait Pattern Antalgic,Decreased Stride Length,Decreased Feet Clearance,Wide Based Gait Factors Limiting Gait Function Factors Limiting Gait Function Pain,Poor Balance Comments Gait Comments See mobility comments. Stair Climbing Assessment Evaluation Level of Assist On Stairs Standby Assistance Devices Stair Climbing Assistive Devices Left Railing,Right Railing Technique/Endurance Stair Climbing Direction Ascend and Descend Stair Climbing Technique Step to Step Number of Steps Climbed 3 Comments Stair Climbing Comments See mobility comments. PT-Balance Assessment Sitting Balance and Reactions Static Sitting Balance Ability Good Dynamic Sitting Balance Ability Fair Standing Balance and Reactions Static Standing Balance Ability Good Dynamic Standing Balance Ability Fair M5 PT-IP Objective Assessments Start: 09/21/22 15:58 Freq: NEEDED Status: Active Protocol: Document 09/21/22 15:59 MB (Rec: 09/21/22 16:10 MB [id number]) Orientation Orientation/Cognition Level of Alertness Alert Orientation Name,Age,Birthday,Month,Date, Year,Day of Week,Place, Situation Language Function Ability No Deficits Noted Safety Awareness Understands Safety Issues Memory Description No Deficits Noted Gross Range of Motion Upper Extremity ROM Assessment Within Functional Limits Lower Extremity ROM Assessment Left Impaired Impairments L hip Strength Upper Extremity Strength Assessment Within Functional Limits Lower Extremity Strength Assessment Left Impaired Hip Does not tolerate Knee As above Ankle As above Sensation Assessment Sensation Gross Sensation WNL M6 PT-IP Treatment Start: 09/21/22 15:58 Freq: NEEDED Status: Active Protocol: Document 09/22/22 08:59 TS (Rec: 09/22/22 09:13 TS [id number]) Physical Therapy Treatment Education Education Provided Precautions,Weight Bearing Status,Post-Op Packet,Safety Other Treatments Other Treatment Performed Edcuated pt on anterior hip precautions, recalled 05/29. M7 PT-IP Assessment and Plan Start: 09/21/22 15:58 Freq: NEEDED Status: Active Protocol: Document 09/22/22 08:59 TS (Rec: 09/22/22 09:13 TS [id number]) PT Summary Assessment and Plan Potential Rehabilitation Potential Excellent Status of Condition at Evaluation Stable Summary Impairments Pain,Strength,Balance Progress Towards Goals Progressing Toward Goals Assessment Summary Pt progressed bed mobility, sit to stands, gait and stairs to SBA this session. She progressed her gait to 250', continues to demonstrate antalgic gait with ecreased sep length and height. She performed stairs x3 SBA with BUE handrail assist. PT recommends pt return home with assist from spouse. Pt has supportive spouse to assist with needs at home and she is doing very well with her mobility/pain. Goals Bed Mobility Goal Independent Transfer Goal Independent Gait Goal Independent Gait Distance 100 Other Goals Ascend and descend 2 steps without rail with LRAD and min A. Days to Meet Goals 2 Frequency of Treatment Frequency Of Treatment Twice a Day Treatment Plan Physical Therapy Treatment Plan Bed Mobility Training,Transfer Training,Gait Training, Therapeutic Exercise,Balance Retraining,Post Op Education, Hot or Cold Pack Precautions Anterior Hip Precautions No Hip Extension,No Hip External Rotation Weight Bearing Status Weight Bearing Status Weight Bear as Tolerated Recommendations To Nursing Amount of Assist Needed 1 Person Assist Discharge Recommendations PT Discharge Recommendations Home with Assistance Transportation Needs at Discharge Private Vehicle
[2022-09-22] MEDS: ASPIRIN EC 81 MG TABLET PO (09:11)
[2022-09-22] MEDS: FLUoxetine 20 MG CAPSULE 40 MG PO (09:13)
[2022-09-22] MEDS: ACYCLOVIR 400 MG TABLET PO (09:13)
[2022-09-22] MEDS: DOCUSATE 100 MG CAPSULE PO (09:13)
--- NOTE | 2022-09-22 09:29 | PC.NURSE ---
Patients dressing to her l.hip is cdi. She has worked with physical therapy and is here for training. She will be discharged this morning.
== END 2022-09-22 10:31 | disposition home or self-care (01) ==
LOC: OR 09:07 → AC 09:08
PROVIDERS: PCP Registered Nurse; Referring Provider Orthopaedic Surgery; Visit Provider Orthopaedic Surgery
PROC: (CPT 27130; principal; 2022-09-21 10:45)
DX: M16.12 Unilateral primary osteoarthritis, left hip (principal); Z20.822 Contact with and (suspected) exposure to COVID-19
CPT/HCPCS: 27130; 36415; 73502; 76000; 85014; 85018; 87635; 97116; 97161; C1776; C9803; C9290; J0171; J1100; J2250; J2405; J2704; J3010

== ENCOUNTER → 2023-06-19 15:35 | Outpatient (CLI) | payer MEDICARE, OTHER, SELFPAY ==
[2022-09-21 18:18] VITALS: BMI 22.2
--- NOTE | 2023-06-19 | DI.MG.S_ITS ---
BILATERAL DIGITAL SCREENING MAMMOGRAM 3D/2D WITH CAD: 06/19/2023 CLINICAL: Routine screening. Family history of breast cancer. Comparison is made to exams dated: 04/25/2022 mammogram, 03/11/2021 mammogram, 12/24/2019 mammogram, and 05/13/2018 mammogram - [facility]. Both breasts are heterogeneously dense, which may obscure small masses (category c / 51-75% glandular tissue). Current study was also evaluated with a Computer Aided Detection (CAD) system. No significant masses, calcifications, or other findings are seen in either breast. There has been no significant interval change. IMPRESSION: NEGATIVE There is no mammographic evidence of malignancy. A 1 year screening mammogram is recommended. Based on the Tyrer Cuzick model (a risk assessment model) the patient's lifetime risk is 9.5% and her 10 year risk is 6.1%. According to the ACR, ACS, and NCCN guidelines, an annual breast MRI exam along with mammogram is recommended if the patient's lifetime risk is 20% or greater. This exam was interpreted at Station ID: [id number]. NOTE: For mammograms, a report in lay terms will be sent to the patient. Approximately 15% of breast malignancies will not be visualized mammographically. In the management of a palpable breast mass, a negative mammogram must not discourage biopsy of a clinically suspicious lesion. Electronically Signed By: Silvio parra/leonides:06/20/2023 07:55:21 letter sent: Normal Exam ACR BI-RADS Category 1: Negative [id number]
== END ==
PROVIDERS: PCP Registered Nurse; Referring Provider Registered Nurse; Visit Provider Registered Nurse
DX: Z12.31 Encounter for screening mammogram for malignant neoplasm of breast (principal); Z80.3 Family history of malignant neoplasm of breast; R92.333 Mammographic heterogeneous density, bilateral breasts
CPT/HCPCS: 77063; 77067

== ENCOUNTER → 2023-09-18 12:39 | Outpatient (CLI) | payer MEDICARE, OTHER, SELFPAY ==
[2022-09-21 18:18] VITALS: BMI 22.2
--- NOTE | 2023-09-18 | DI.RAD.S_ITS ---
PROCEDURE: XR CHEST 2V INDICATIONS: ASTHMA/COUGH TECHNIQUE: 2 views of the chest were acquired. COMPARISON: [facility], CR, XR CHEST 2V, 08/30/2020, 14:36. FINDINGS: Surgical changes and devices: None. Lungs and pleura: Mildly hyperlucent, hyperinflated lungs and mild right perihilar bronchial wall thickening. No focal consolidation, effusion, or pneumothorax. Mediastinum: Mediastinal contours are normal. Heart size is normal. Bones and chest wall: No suspicious bony abnormalities. Soft tissues appear unremarkable. IMPRESSION: Chronic hyperinflation suggesting asthma or emphysema. Mild right perihilar bronchial wall thickening suggesting bronchitis. Dictated by: Nancy Lucas M.D. on 09/18/2023 at 16:47 Approved by: Nancy Lucas M.D. on 09/18/2023 at 16:48
== END ==
PROVIDERS: PCP Registered Nurse; Referring Provider Registered Nurse; Visit Provider Registered Nurse
DX: J45.20 Mild intermittent asthma, uncomplicated (principal); R05.2 Subacute cough
CPT/HCPCS: 71046

== ENCOUNTER 2024-01-15 08:59 | Day surgery (SDC) | payer MEDICARE, OTHER, SELFPAY ==
[2022-09-21 18:18] VITALS: BMI 22.2
[2024-01-15 09:24] VITALS: BP 104/68; PULSE 67; RESP 16; TEMP 36.3; O2SAT 95; BMI 23.3
[2024-01-15] MEDS: LACTATED RINGERS 1,000 ML 42 ML IV (09:38)
--- NOTE | 2024-01-15 09:55 | PM.HP.1 ---
History of Present Illness History of Present Illness Date Patient Seen: 01/15/24 Time Patient Seen: 09:56 Chief complaint: SDC Narrative: 73-year-old woman history of diverticulosis here for screening colonoscopy. Last colonoscopy 10 years ago. No family history of colon cancer. Occasionally she has bouts of diarrhea which she attributes to artificial sweeteners. [facility] Medical History History of COVID-19 (11/2021) Osteoporosis Depression (2018) Eczema Easy bruisability Osteoarthritis Hx of heartburn Elevated cholesterol Asthma Surgical History Hx of arthroscopy of right knee Hx of thumb surgery Hx of abdominoplasty Hx of unilateral salpingectomy Status post appendectomy Family History Father Diverticulitis Prostate cancer High cholesterol Mother Mental health problem Grandmother Diverticulitis Social History household members: spouse Smoking Status: Former smoker alcohol intake: current Meds Home Medications and Allergies Home Medications Medication Instructions Recorded Confirmed Type fluoxetine 40 mg capsule 40 mg PO QAM 09/15/22 01/15/24 History minoxidil 2.5 mg tablet 1.25 mg PO DAILY 09/15/22 01/15/24 History alendronate 70 mg tablet 70 mg PO 01/15/24 History Allergies Allergy/AdvReac Type Severity Reaction Status Date / Time cephalexin [From KEFLEX] Allergy Severe Hives Verified 09/21/22 09:23 latex Allergy Severe Rash Verified 09/21/22 09:23 nickel Allergy Severe Rash Verified 09/21/22 09:23 [id number] Reductase AdvReac Severe Muscle Pain Verified 09/21/22 09:23 Inhibitor Exam Vital Signs (past 8 hours): - 01/15/24 09:24 Temperature 97.4 F L Pulse Rate 67 Respiratory Rate 16 Blood Pressure 104/68 Pulse Oximetry 95 Oxygen Delivery Method Room Air Oxygen Delivery Method Room Air Narrative Exam Narrative: General adult woman alert oriented no acute distress Chest nonlabored respiration Extremities warm well perfused Assessment & Plan Assessment & Plan narrative: The patient requires colorectal screening and colonoscopy is recommended. Technical details were discussed. Risks, benefits, alternatives explained. Risks including but not limited to myocardial infarction, aspiration, bleeding, pain, missed lesion, incomplete examination, need for further radiographic studies, intestinal injury, and need for major abdominal surgery were discussed. All questions were answered to their satisfaction, and they are in agreement with this plan. Time-Based Coding :: [TOTAL MINUTES] spent with patient and on the chart (including review of chart, obtaining history, exam, reviewing outside data, placing orders, documenting exam and treatment plan, and counseling patient) on [DATE].
--- NOTE | 2024-01-15 10:00 | P.OP.COLON_ITS ---
Operative Date/Time/Diagnoses Date of procedure: 01/15/24 Time of procedure: 10:00 Pre-op diagnosis: Diverticulosis Procedure & Clinicians Study performed: Screening colonoscopy Same procedure as scheduled: Yes Indications: Colorectal screening Surgeon: Petr Ruth Procedure Notes Procedure in detail: The history and physical was performed/updated and the patient is ASA class is 2. The procedure was discussed in detail with the patient. Potential risks complications including infection, bleeding, missed diagnosis, perforation, need for surgery, and were explained. Their questions were answered and informed consent was obtained. Patient was brought to the procedure room and placed standard monitoring equipment. The patient's vital signs were monitored continuously throughout the entire procedure. Prior to starting time-out was performed. The patient was placed in the left lateral recumbent position. Procedural sedation was administered by anesthesia. Examination began with a thorough inspection of the perianal area there was no evidence of fissures, fistulae, external hemorrhoids or cutaneous malignancy. The colonoscopy scope was then placed into the anal canal and was advanced to the cecum, which was identified by the ileocecal v alve, the appendiceal orifice and the confluence of the taenia. The scope was then slowly withdrawn examining colon thoroughly in all directions, irrigating it of any residual stool. The scope was retroflexed within the rectum The patient tolerated the procedure well. They will be discharged once criteria are met. The prep was of good/excellent quality. The withdrawl time was 6 minutes. FINDINGS * Unremarkable colonoscopy. Normal healthy colonic mucosa without mass or polyps. Specimen(s): none sent Impression: Normal colonoscopy Post-procedure Plan for aftercare: No need for further colonoscopy unless symptomatic Disposition: same day surgery
[2024-01-15 10:27] VITALS: BP 84/52; PULSE 66; RESP 15; TEMP 36.3; O2SAT 95
[2024-01-15 10:28] VITALS: BP 87/57; PULSE 61; RESP 16; O2SAT 95
[2024-01-15 10:33] VITALS: BP 110/55; PULSE 61; RESP 17; TEMP 36.1; O2SAT 99
[2024-01-15 10:35] VITALS: BP 97/61; PULSE 62; RESP 16; O2SAT 99
== END 2024-01-15 10:49 | disposition home or self-care (01) ==
PROVIDERS: PCP Registered Nurse; Referring Provider Surgery; Visit Provider Surgery
PROC: 0DJD8ZZ Inspection of Lower Intestinal Tract, Via Natural or Artificial Opening Endoscopic (ICD-10-PCS; CPT 45378; principal; 2024-01-15 10:15)
DX: Z12.11 Encounter for screening for malignant neoplasm of colon (principal)
CPT/HCPCS: G0121; J2704

== ENCOUNTER → 2024-08-12 14:57 | Outpatient (CLI) | payer MEDICARE, OTHER, SELFPAY ==
[2022-09-21 18:18] VITALS: BMI 22.2
--- NOTE | 2024-08-12 14:58 | DI.MG.S_ITS ---
MM screening mammo BI: 08/12/2024. BI-RADS: 1 CLINICAL: 73-year old female for bilateral screening mammogram. Tyrer-Cuzick lifetime risk of 8.2%. No personal or first-degree family history of breast cancer. Current reported family history of breast cancer: maternal aunt. PRIOR EXAMS 06/19/2023, 04/25/2022, 03/11/2021, 12/24/2019, 05/13/2018, 02/13/2017, 01/07/2016, 12/31/2014. MAMMOGRAPHY TECHNIQUE: 2D and 3D (tomosynthesis) digital mammographic views obtained, with additional images as needed for full coverage. Current study was also evaluated with a Computer Aided Detection (CAD) system. DENSITY C. The breasts are heterogeneously dense, which may obscure small masses. MAMMOGRAPHY FINDINGS Bilateral: No suspicious mass, asymmetry, microcalcification, or other abnormality seen. No significant change from comparison. IMPRESSION: * No evidence of malignancy. RECOMMENDATIONS Bilateral * Annual screening mammography. OVERALL ASSESSMENT CATEGORY BI-RADS-1: Negative. The [employer] recommends annual screening mammography beginning at age 40 for women with average risk of breast cancer. ELECTRONICALLY SIGNED: Shanel Gerber M.D. on 08/13/2024 at 08:27:00 AM PT Interpreting Station ID: [id number]
== END ==
PROVIDERS: PCP Registered Nurse; Referring Provider Registered Nurse; Visit Provider Registered Nurse
DX: Z12.31 Encounter for screening mammogram for malignant neoplasm of breast (principal); Z80.3 Family history of malignant neoplasm of breast; R92.333 Mammographic heterogeneous density, bilateral breasts
CPT/HCPCS: 77063; 77067

== ENCOUNTER → 2024-09-23 11:19 | Outpatient (CLI) | payer MEDICARE, OTHER, SELFPAY ==
[2022-09-21 18:18] VITALS: BMI 22.2
--- NOTE | 2024-09-23 11:21 | DI.CT.S_ITS ---
PROCEDURE: CT SOFT TISSUE NECK W CON INDICATIONS: ANGIODEMA TECHNIQUE: After the administration of intravenous contrast, 3.0 mm axial sections acquired from the sella to the aortic arch. 3 mm thick coronal and sagittal reformats were generated. For radiation dose reduction, the following was used: automated exposure control. COMPARISON: None. FINDINGS: Skull Base: The visualized intracranial contents, skull, and orbits are unremarkable. Visualized paranasal sinuses are clear. Pharynx and Larynx: The nasopharyngeal airway is patent and midline. Parapharyngeal soft tissues including palatine tonsils and base of the tongue are normal. Retropharyngeal space unremarkable. Normal appearance of the false and true vocal cords. Muscles and Fascial Planes: Soft tissue swelling, edema and fluid noted in the left cheek. Associated advanced carious and periodontal disease noted in the left maxillary and mandibular dentition. Lymph Nodes: No evidence of adenopathy. Vasculature: Unremarkable. Submandibular and Parotid Glands: Normal in size and attenuation. Thyroid: Unremarkable. No enlarged or calcified nodules. Bones: No acute fracture. No osteolytic or blastic lesion is evident. Normal bone mineralization. Lung Apices: The visualized lung apices are clear. IMPRESSION: Soft tissue swelling in fluid in the left cheek associated with dental caries and periodontal disease probably reflects cellulitis and/or developing abscess. Approved by: Tom Sam M.D. on 09/23/2024 at 16:23
[2024-09-23 12:03] LABS: Estimated Glomerular Filt Rate > 60 mL/min (>60)
== END ==
PROVIDERS: PCP Registered Nurse; Referring Provider Registered Nurse; Visit Provider Registered Nurse
DX: R22.0 Localized swelling, mass and lump, head (principal); T78.3XXD Angioneurotic edema, subsequent encounter; L03.211 Cellulitis of face; K02.9 Dental caries, unspecified; K05.6 Periodontal disease, unspecified
CPT/HCPCS: 36415; 70491; 82565; Q9967